=== PATIENT | female | born 1990 | race Caucasian/White ===

== ENCOUNTER 2018-10-21 22:03 | Emergency (ER) | payer SELFPAY ==
[~2018-10-21] VITALS: Ht 165.1 cm; Wt 61.7 kg
[2018-10-21 22:12] VITALS: BP 135/82; Ht 165.1 cm; Wt 61.7 kg
== END 2018-10-22 01:18 | disposition left against medical advice (07) ==
LOC: ED 22:03
DX: Z53.21 Procedure and treatment not carried out due to patient leaving prior to being seen by health care provider (principal)